=== PATIENT | male | born 2000 | race Hispanic/Latino ===

== ENCOUNTER 2022-03-02 23:33 | Emergency (ER) | payer SELFPAY ==
[2022-03-03 00:19] LABS: Absolute Lymphocytes (CBC) 2.5 K/uL (0.7-4.9); Hematocrit 44.4 % (39.6-49.0); Lymphocytes % 22.6 % (15.3-44.8); MCV 84.6 fL (80-100); MPV 9.3 fL (7.6-11.3); RBC Red Blood Cell Count 5.25 M/uL (4.33-5.43)
[2022-03-03] MEDS ORDERED: ONDANSETRON 4 MG/2 ML VIAL ONE (00:21)
[2022-03-03] MEDS ORDERED: FAMOTIDINE 20 MG/2 ML VIAL IV ONE (00:22)
[2022-03-03] MEDS ORDERED: NA CHLORIDE 0.9% 1,000 ML ONE (00:22)
[2022-03-03 00:43] LABS: Albumin 4.1 g/dL (3.4-5.0); Bilirubin Total 1.4 mg/dL (0.2-1.0); Potassium 3.8 mmol/L (3.5-5.1); Protein, Total 7.8 g/dL (6.4-8.2)
--- NOTE | 2022-03-03 01:39 | ER ---
Nurse's Notes [facility] Name: Aurora Jeter Age: 21 yrs Sex: Male : 2000 Arrival Date: 03/02/2022 Time: 23:34 Bed 8 Private MD: Diagnosis: Abdominal pain, Generalized;Vomiting Presentation: 03/02 23:38 Chief complaint: N/V after drinking vodka last night. Not tolerating fluids. hb Coronavirus screen: At this time, the client does not indicate any symptoms associated with coronavirus-19. Ebola Screen: No symptoms or risks identified at this time. Initial Sepsis Screen: Does the patient meet any 2 criteria? No. Patient's initial sepsis screen is negative. Does the patient have a suspected source of infection? No. Patient's initial sepsis screen is negative. Risk Assessment: Do you want to hurt yourself or someone else? Patient reports no desire to harm self or others. Onset of symptoms was March 01, 2022. 23:38 Method Of Arrival: Ambulatory hb 23:38 Acuity: FLORECITA 3 hb Historical: - Allergies: 23:39 No Known Allergies; hb - Home Meds: 23:39 None [Active]; hb - PMHx: 23:39 None; hb - PSHx: 23:39 None; hb - Immunization history:: Adult Immunizations up to date. - Social history:: Smoking status: Patient reports the use of cigarette tobacco products, smokes one pack cigarettes per day. Screenin:51 Abuse screen: Denies threats or abuse. Denies injuries from another. Nutritional ll3 screening: No deficits noted. Tuberculosis screening: No symptoms or risk factors identified. 03/03 00:21 Fall Risk None identified. ll3 Assessment: 03/02 23:51 General: Appears uncomfortable, ill, Behavior is calm, cooperative. Pain: Complains of ll3 pain in Throat. Neuro: Level of Consciousness is awake, alert, obeys commands, Oriented to person, place, time, situation. Cardiovascular: Patient's skin is warm and dry. Respiratory: Reports cough that is Respiratory effort is even, unlabored, Respiratory pattern is regular, symmetrical. GI: Abdomen is round non-distended, Reports nausea, vomiting. EENT: Reports nasal discharge pain when swallowing. Derm: Skin is pink, warm \T\ dry. 03/03 01:10 Reassessment: No changes from previously documented assessment. Patient and/or family ll3 updated on plan of care and expected duration. Pain level reassessed. Patient is alert, oriented x 3, equal unlabored respirations, skin warm/dry/pink. 01:22 Reassessment: Pt tolerated PO challenge well, Dr. Monahan notified. ll3 Vital Signs: 03/02 23:38 BP 136 / 83; Pulse 82; Resp 18; Temp 98.4; Pulse Ox 100% on R/A; Weight 63.5 kg; Height hb 5 ft. 4 in. (162.56 cm); Pain 3/10; 03/03 01:10 BP 122 / 95; Pulse 59; Resp 17; Pulse Ox 97% on R/A; ll3 03/02 23:38 Body Mass Index 24.03 (63.50 kg, 162.56 cm) hb ED Course: 03/02 23:34 Patient arrived in ED. ja2 23:39 Triage completed. hb 23:39 Arm band placed on. hb 23:51 Patient has correct armband on for positive identification. Bed in low position. Call ll3 light in reach. Side rails up X 1. 23:52 Berlin Monahan MD is Attending Physician. kdr 03/03 00:05 Initial lab(s) drawn, by me, sent to lab. Inserted saline lock: 22 gauge in right ll3 antecubital area, using aseptic technique. Blood collected. 00:21 No provider procedures requiring assistance completed. ll3 01:58 IV discontinued, intact, bleeding controlled, No redness/swelling at site. Pressure ll3 dressing applied. Administered Medications: 00:20 Drug: NS 0.9% 1000 ml Route: IV; Rate: 1 bolus; Site: right antecubital; ll3 00:20 Drug: Pepcid (famotidine) 20 mg Route: IVP; Site: right antecubital; ll3 01:58 Follow up: Response: No adverse reaction; Marked relief of symptoms ll3 00:20 Drug: Zofran (Ondansetron) 4 mg Route: IVP; Site: right antecubital; ll3 01:58 Follow up: Response: No adverse reaction; Marked relief of symptoms ll3 Medication: 01:58 VIS not applicable for this client. ll3 Outcome: 01:38 Discharge ordered by . kdr 01:58 Discharged to home ambulatory, with friend. ll3 01:58 Condition: stable 01:58 Discharge instructions given to patient, friend, Instructed on discharge instructions, follow up and referral plans. medication usage, Demonstrated understanding of instructions, follow-up care, medications, Prescriptions given X 2. 01:59 Patient left the ED. ll3 Signatures: Berlin Monahan MD MD kdr Baxter, Heather RN RN Temi Christopher Lynsea, RN RN 3
--- NOTE | 2022-03-03 01:39 | EDPHYS ---
Physician Documentation [facility] Name: Aurora Jeter Age: 21 yrs Sex: Male : 2000 Arrival Date: 03/02/2022 Time: 23:34 Bed 8 Private MD: ED Physician Berlin Monahan HPI: 03/03 00:00 This 21 yrs old Male presents to ER via Ambulatory with complaints of ALCOHOL ISSUE. kdr 00:00 Vomiting. Onset: The symptoms/episode began/occurred last night. Severity of symptoms: kdr At their worst the symptoms were mild moderate just prior to arrival, in the emergency department the symptoms are unchanged. The patient has not experienced similar symptoms in the past. The patient has not recently seen a physician. Patient states that he was drinking last night doing a number of shots of hard liquor. Since about 1 or 2:00 in the morning, he has been vomiting more or less continuously and has been unable to keep any fluids down or food. He denies any other current substance abuse however he did smoke methamphetamines about 2 days ago.. Historical: - Allergies: 03/02 23:39 No Known Allergies; hb - Home Meds: 23:39 None [Active]; hb - PMHx: 23:39 None; hb - PSHx: 23:39 None; hb - Immunization history:: Adult Immunizations up to date. - Social history:: Smoking status: Patient reports the use of cigarette tobacco products, smokes one pack cigarettes per day. ROS: 03/03 00:00 Constitutional: Negative for fever, chills, and weight loss, Eyes: Negative for injury, kdr pain, redness, and discharge, ENT: Negative for injury, pain, and discharge, Neck: Negative for injury, pain, and swelling, Cardiovascular: Negative for chest pain, palpitations, and edema, Respiratory: Negative for shortness of breath, cough, wheezing, and pleuritic chest pain, Back: Negative for injury and pain, : Negative for injury, bleeding, discharge, and swelling, MS/Extremity: Negative for injury and deformity, Skin: Negative for injury, rash, and discoloration, Neuro: Negative for headache, weakness, numbness, tingling, and seizure activity. Psych: Negative for depression, anxiety, suicide ideation, homicidal ideation, and hallucinations, Allergy/Immunology: Negative for hives, rash, and allergies, Endocrine: Negative for neck swelling, polydipsia, polyuria, polyphagia, and marked weight changes, Hematologic/Lymphatic: Negative for swollen nodes, abnormal bleeding, and unusual bruising. Abdomen/GI: Positive for abdominal pain, nausea and vomiting, Negative for diarrhea, constipation, abdominal cramps, abdominal distension, anorexia, dysphagia, hematemesis, black/tarry stool, rectal pain, rectal bleeding. Exam: 00:00 Constitutional: This is a well developed, well nourished patient who is awake, alert, kdr and in no acute distress. Head/Face: Normocephalic, atraumatic. Eyes: Pupils equal round and reactive to light, extra-ocular motions intact. Lids and lashes normal. Conjunctiva and sclera are non-icteric and not injected. Cornea within normal limits. Periorbital areas with no swelling, redness, or edema. Neck: Trachea midline, no thyromegaly or masses palpated, and no cervical lymphadenopathy. Supple, full range of motion without nuchal rigidity, or vertebral point tenderness. No Meningismus. Chest/axilla: Normal chest wall appearance and motion. Nontender with no deformity. No lesions are appreciated. Cardiovascular: Regular rate and rhythm with a normal S1 and S2. No gallops, murmurs, or rubs. Normal PMI, no JVD. No pulse deficits. Respiratory: Lungs have equal breath sounds bilaterally, clear to auscultation and percussion. No rales, rhonchi or wheezes noted. No increased work of breathing, no retractions or nasal flaring. Abdomen/GI: Soft, non-tender, with normal bowel sounds. No distension or tympany. No guarding or rebound. No evidence of tenderness throughout. Back: No spinal tenderness. No costovertebral tenderness. Full range of motion. Skin: Warm, dry with normal turgor. Normal color with no rashes, no lesions, and no evidence of cellulitis. MS/ Extremity: Pulses equal, no cyanosis. Neurovascular intact. Full, normal range of motion. Neuro: Awake and alert, GCS 15, oriented to person, place, time, and situation. Cranial nerves II-XII grossly intact. Motor strength 5/5 in all extremities. Sensory grossly intact. Cerebellar exam normal. Normal gait. Psych: Awake, alert, with orientation to person, place and time. Behavior, mood, and affect are within normal limits. Vital Signs: 03/02 23:38 BP 136 / 83; Pulse 82; Resp 18; Temp 98.4; Pulse Ox 100% on R/A; Weight 63.5 kg; Height hb 5 ft. 4 in. (162.56 cm); Pain 3/10; 03/03 01:10 BP 122 / 95; Pulse 59; Resp 17; Pulse Ox 97% on R/A; ll3 03/02 23:38 Body Mass Index 24.03 (63.50 kg, 162.56 cm) hb MDM: 00:00 Data reviewed: vital signs, nurses notes, lab test result(s). Counseling: I had a kdr detailed discussion with the patient and/or guardian regarding: the historical points, exam findings, and any diagnostic results supporting the discharge/admit diagnosis, lab results, the need for outpatient follow up. 01:38 Patient medically screened. kdr 03/02 23:59 Order name: ETOH Level; Complete Time: 01:14 [facility] 03/02 23:59 Order name: CBC with Diff; Complete Time: 01:14 kdr 03/02 23:59 Order name: CMP; Complete Time: 01:14 [facility] 03/02 23:59 Order name: Lipase; Complete Time: 01:14 [facility] 03/02 23:59 Order name: IV Saline Lock; Complete Time: 00:09 [facility] 03/02 23:59 Order name: Labs collected and sent; Complete Time: 00:09 [facility] 03/03 01:14 Order name: PO challenge; Complete Time: 01:22 kdr Administered Medications: 00:20 Drug: NS 0.9% 1000 ml Route: IV; Rate: 1 bolus; Site: right antecubital; ll3 00:20 Drug: Pepcid (famotidine) 20 mg Route: IVP; Site: right antecubital; ll3 01:58 Follow up: Response: No adverse reaction; Marked relief of symptoms ll3 00:20 Drug: Zofran (Ondansetron) 4 mg Route: IVP; Site: right antecubital; ll3 01:58 Follow up: Response: No adverse reaction; Marked relief of symptoms ll3 Disposition Summary: 03/03/22 01:38 Discharge Ordered Location: Home kdr Problem: new kdr Symptoms: have improved kdr Condition: Stable kdr Diagnosis - Abdominal pain, Generalized kdr - Vomiting kdr Followup: kdr - With: Private Physician - When: 2 - 3 days - Reason: If symptoms return, Further diagnostic work-up, Recheck today's complaints, Continuance of care, Re-evaluation by your physician Discharge Instructions: - Discharge Summary Sheet kdr - Nausea and Vomiting, Adult, [id number] kdr - Abdominal Pain, Adult, [id number] kdr Forms: - Medication Reconciliation Form kdr - Thank You Letter kdr Prescriptions: - Pepcid 20 mg Oral Tablet - take 1 tablet by ORAL route every 12 hours for 5 days; 10 tablet; Refills: 0, kdr Product Selection Permitted - promethazine 25 mg Oral Tablet - take 1 tablet by ORAL route every 6 hours As needed; 20 tablet; Refills: 0, kdr Product Selection Permitted Signatures: Dispatcher [employer] Berlin Carbajal MD MD kdr Ama Chen, RN RN Kyle Mcnulty RN RN ll3
[2022-03-03 04:31] VITALS: TEMP 98.4
[2022-03-03 04:42] VITALS: BP 122/95; O2SAT 97
== END 2022-03-03 01:59 | disposition home or self-care (01) ==
LOC: ER 23:33
DX: R10.84 Generalized abdominal pain (principal); R11.10 Vomiting, unspecified; F17.210 Nicotine dependence, cigarettes, uncomplicated
CPT/HCPCS: 36415; 80053; 80320; 83690; 85025; 96374; 96375; 99284; J2405; J7030

== ENCOUNTER 2022-08-12 18:39 | Emergency (ER) | payer SELFPAY ==
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
--- NOTE | 2022-08-12 19:14 | EDPHYS ---
Physician Documentation [facility] Name: Aurora Jeter Age: 21 yrs Sex: Male : 2000 Arrival Date: 08/12/2022 Time: 18:41 Bed IW3 Private MD: ED Physician Hannah Stewart HPI: 08/12 21:54 This 21 yrs old Male presents to ER via Ambulatory with complaints of Ear Pain.kb 21:54 The patient presents with pain, moderate. The complaints affect the right ear. Onset: kb The symptoms/episode began/occurred today. Modifying factors: The symptoms are alleviated by nothing, the symptoms are aggravated by nothing. Associated signs and symptoms: The patient has no apparent associated signs or symptoms. Severity of symptoms: At their worst the symptoms were moderate in the emergency department the symptoms are unchanged. The patient has not experienced similar symptoms in the past. The patient has not recently seen a physician. Historical: - Allergies: 19:14 No Known Allergies; ph - Immunization history:: Adult Immunizations up to date. - Social history:: Smoking status: unknown. ROS: 21:53 Constitutional: Negative for fever, chills, and weight loss. kb 21:53 ENT: Positive for ear pain. 21:53 All other systems are negative. Exam: 21:53 Constitutional: This is a well developed, well nourished patient who is awake, alert, kb and in no acute distress. Head/Face: Normocephalic, atraumatic. Cardiovascular: Regular rate and rhythm with a normal S1 and S2. No gallops, murmurs, or rubs. No pulse deficits. Respiratory: Respirations even and unlabored. No increased work of breathing. Talking in full sentences Abdomen/GI: Soft, non-tender. No distention Skin: Warm, dry with normal turgor. Normal color. MS/ Extremity: Pulses equal, no cyanosis. Neurovascular intact. Full, normal range of motion. Neuro: Awake and alert, GCS 15, oriented to person, place, time, and situation. Moves all extremities. Normal gait. 21:53 ENT: TM's: bulging, on the right, erythema, that is mild, on the right. Vital Signs: 19:23 BP 123 / 72; Pulse 68; Resp 19; Temp 98.2; Pulse Ox 100% on R/A; ph MDM: 19:01 Patient medically screened. kb 21:54 Differential diagnosis: otitis media, otitis externa, ruptured TM, acute otalgia. Data kb reviewed: vital signs, nurses notes. Counseling: I had a detailed discussion with the patient and/or guardian regarding: the historical points, exam findings, and any diagnostic results supporting the discharge/admit diagnosis, the need for outpatient follow up, a family practitioner, to return to the emergency department if symptoms worsen or persist or if there are any questions or concerns that arise at home. Administered Medications: No medications were administered Disposition Summary: 08/12/22 19:14 Discharge Ordered Location: Home kb Condition: Stable kb Diagnosis - Otitis media, unspecified, right ear kb Followup: kb - With: Emergency Department - When: As needed - Reason: Worsening of condition Followup: kb - With: Private Physician - When: 2 - 3 days - Reason: Recheck today's complaints, Continuance of care, Re-evaluation by your physician Discharge Instructions: - Discharge Summary Sheet kb - Otitis Media, Adult, [id number] kb Forms: - Medication Reconciliation Form kb - Thank You Letter kb - Antibiotic Education kb - Prescription Opioid Use kb Prescriptions: - Amoxicillin 875 mg Oral Tablet - take 1 tablet by ORAL route every 12 hours for 10 days; 20 tablet; Refills: 0, kb Product Selection Permitted Signatures: Stephy Pruett FNP-C FNP-Anisa Figueroa, RN RN ph
--- NOTE | 2022-08-12 19:14 | ER ---
Nurse's Notes [facility] Name: Aurora Jeter Age: 21 yrs Sex: Male : 2000 Arrival Date: 08/12/2022 Time: 18:41 Bed IW3 Private MD: Diagnosis: Otitis media, unspecified, right ear Presentation: 08/12 19:13 Chief complaint: Patient states: I have right ear pain that started today and has just ph gotten worse. I have no cough or congestion. Coronavirus screen: Vaccine status: Patient reports being unvaccinated. Ebola Screen: No symptoms or risks identified at this time. Risk Assessment: Do you want to hurt yourself or someone else? Patient reports no desire to harm self or others. Onset of symptoms was August 12, 2022. 19:13 Method Of Arrival: Ambulatory 19:13 Acuity: FLORECITA 4 ph 19:24 Initial Sepsis Screen: Does the patient meet any 2 criteria? No. Patient's initial ph sepsis screen is negative. Does the patient have a suspected source of infection? No. Patient's initial sepsis screen is negative. Triage Assessment: 19:14 General: Appears in no apparent distress. Behavior is calm, cooperative. Pain: ph Complains of pain in right ear. 19:24 EENT: Reports pain in right ear. ph Historical: - Allergies: 19:14 No Known Allergies; ph - Immunization history:: Adult Immunizations up to date. - Social history:: Smoking status: unknown. Screenin:24 [facility] ED Fall Risk Assessment (Adult) History of falling in the last 3 months, ph including since admission No falls in past 3 months (0 pts) Confusion or Disorientation No (0 pts) Intoxicated or Sedated No (0 pts) Impaired Gait No (0 pts) Mobility Assist Device Used No (0 pt) Altered Elimination No (0 pt) Score/Fall Risk Level 0 - 2 = Low Risk. Abuse screen: Denies threats or abuse. Denies injuries from another. Nutritional screening: No deficits noted. Tuberculosis screening: No symptoms or risk factors identified. Vital Signs: 19:23 BP 123 / 72; Pulse 68; Resp 19; Temp 98.2; Pulse Ox 100% on R/A; ph ED Course: 18:41 Patient arrived in ED. rg4 19:00 Stephy Pruett FNP-C is [facility]. kb 19:00 Hannah Stewart MD is Attending Physician. kb 19:14 Triage completed. ph 19:14 Arm band placed on right wrist. ph 19:23 Anisa Gannon, RN is Primary Nurse. ph 19:24 Patient has correct armband on for positive identification. ph 19:24 No provider procedures requiring assistance completed. Patient did not have IV access ph during this emergency room visit. Administered Medications: No medications were administered Medication: 19:25 VIS not applicable for this client. ph Outcome: 19:14 Discharge ordered by . kb 19:24 Discharged to home ambulatory. ph 19:24 Condition: stable 19:24 Discharge instructions given to patient, Instructed on discharge instructions, follow up and referral plans. Demonstrated understanding of instructions, follow-up care, medications, Prescriptions given X 1. 19:25 Patient left the ED. ph Signatures: Stephy Pruett FNP-C FNP-Carlosb Anisa Gannon RN RN Yoko Jeter [id number]
[2022-08-12 20:05] VITALS: BP 123/72; TEMP 98.2; O2SAT 100
== END 2022-08-12 19:25 | disposition home or self-care (01) ==
LOC: ER 18:39
DX: H66.91 Otitis media, unspecified, right ear (principal)